=== PATIENT | male | born 1995 | race Caucasian/White ===

== ENCOUNTER 2017-11-16 21:45 | Emergency (ER) | payer SELFPAY ==
[2017-11-16] MEDS ORDERED: NS(*) 0.9% 1000 ML BAG 1,000 ML IV ONE ×2 (21:58→23:50)
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
[2017-11-16] MEDS ORDERED: ONDANSETRON 4 MG/2 ML VIAL IVP ONE (22:00)
[2017-11-16] MEDS ORDERED: HYDROmorphone* 1 MG/ML 1 MG/ML ML IVP ONE (22:00)
[2017-11-16] MEDS ORDERED: DIPHTH/TETANUS/ACEL. PERTUSSIS IM ONE (22:00)
[2017-11-16 22:18] LABS: PLATELET COUNT, AUTOMATED 339 K/uL (150-450)
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
[2017-11-16 22:29] LABS: INR 1.04
[2017-11-16] MEDS ORDERED: IOPAMIDOL 76% 100 ML INFUS BTL 100 ML ONE (22:32)
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
--- NOTE | 2017-11-17 00:26 | RADIOLOGY IMAGING REPORT ---
FACILITY: [facility] PATIENT NAME: Dipak Pan : 1995 MR: [id number] V: [id number] EXAM DATE: ORDERING PHYSICIAN: BOB SANDOVAL TECHNOLOGIST: Location: [facility] Patient: Dipak Pan : 1995 Visit/Account:[id number] Date of Sevice: 11/16/2017 CT of the cervical spine without contrast: Indication: Trauma. Technique: Helical CT was performed from the base of the skull through the upper thoracic spine witho ut contrast. Axial, coronal, and sagittal reconstructions are reviewed. Image quality is suboptimal, due to large body habitus. One of the following dose optimization techniques was utilized in the performance of this exam: Autom ated exposure control; adjustment of the mA and/or kV according to the patient's size; or use of an i terative reconstruction technique. Specific details can be referenced in the facility's radiology C T exam operational policy. Comparison: None. Findings: There are nondisplaced fractures through the right articular masses and laminae of C6 and C 7. The findings are best visualized in the axial and coronal planes. No fracture, compression, or sub luxation of the vertebral bodies is identified. The skeletal structures are otherwise intact. There i s no evidence of subluxation, angulation, or rotation. There is normal mineralization. The paraspinal soft tissues are unremarkable, as visualized. IMPRESSION: There are nondisplaced fractures through the right articular masses and laminae of C6 and C7. A preliminary report was called to Dr. Sandoval at [facility] at 2350 hours. Report Dictated By: Edmond Taylor MD at 11/16/2017 11:40 PM Report E-Signed By: Edmond Taylor MD at 11/17/2017 12:23 AM WSN:[id number]
--- NOTE | 2017-11-17 00:45 | RADIOLOGY IMAGING REPORT ---
FACILITY: [facility] PATIENT NAME: Dipak Pan : 1995 MR: [id number] V: [id number] EXAM DATE: ORDERING PHYSICIAN: BOB TSE TECHNOLOGIST: Location: [facility] Patient: Dipak Pan : 1995 Visit/Account:[id number] Date of Sevice: 11/16/2017 CT of the cervical spine without contrast: Indication: Trauma. Technique: Helical CT was performed through the lumbar spine without contrast. Axial, coronal, and sa gittal reconstructions are reviewed. Image quality is suboptimal, due to large body habitus. One of the following dose optimization techniques was utilized in the performance of this exam: Autom ated exposure control; adjustment of the mA and/or kV according to the patient's size; or use of an i terative reconstruction technique. Specific details can be referenced in the facility's radiology C T exam operational policy. Comparison: None. Findings: There is no evidence of fracture, compression, subluxation, or other acute deformity. There is uniform mineralization. The skeletal structures are otherwise unremarkable. No paraspinal soft ti ssue abnormalities are identified. IMPRESSION: No evidence of fracture or acute deformity. Report Dictated By: Edmond Taylor MD at 11/17/2017 12:37 AM Report E-Signed By: Edmond Taylor MD at 11/17/2017 12:41 AM WSN:[id number]
--- NOTE | 2017-11-17 00:54 | RADIOLOGY IMAGING REPORT ---
FACILITY: [facility] PATIENT NAME: Dipak Pan : 1995 MR: [id number] V: [id number] EXAM DATE: ORDERING PHYSICIAN: BOB SANDOVAL TECHNOLOGIST: Location: [facility] Patient: Dipak Pan : 1995 Visit/Account:[id number] Date of Sevice: 11/16/2017 CT of the chest, abdomen, and pelvis with contrast: Indication: Trauma. Technique: Helical CT was performed through the chest, abdomen, and pelvis following IV contrast enha ncement with 100 cc of Isovue-370. Multiplanar reconstructions are reviewed. Image quality is limite d, due to large body habitus and the low position of the patient's arms. One of the following dose optimization techniques was utilized in the performance of this exam: Autom ated exposure control; adjustment of the mA and/or kV according to the patient's size; or use of an i terative reconstruction technique. Specific details can be referenced in the facility's radiology C T exam operational policy. Comparison: None. Findings: Lungs: There is minimal atelectasis at the left base. No parenchymal consolidation or volume loss is identified. Pleural spaces: There appears to be a tiny anterior left pneumothorax. Minimal left pleural effusion is present. Mediastinum: There is uniform enhancement of the vascular structures. There are no definite signs of vascular injury or mediastinal hematoma. The heart and pericardial soft tissues appear unremarkable. Liver: Intact and unremarkable, as visualized. Gallbladder and biliary tree: Within normal limits. Pancreas: Unremarkable, as visualized. Spleen: Intact and unremarkable, as visualized. Adrenal glands: Within normal limits. Kidneys: Intact and unremarkable, as visualized. Intestinal structures: Unremarkable, as visualized. Urinary bladder: Intact and unremarkable. Pelvic structures: Unremarkable. Ascites or fluid collections: None seen. Skeletal structures: There are acute fractures in the posterolateral margins of the left sixth, seven th, eighth, ninth, and tenth ribs. The eighth and ninth rib fractures are significantly displaced. Th ere also appears to be a fracture of the left scapula near the glenoid process. No acute deformities are clearly identified in the thoracic spine, lumbar spine, or pelvic bones. IMPRESSION: Multiple acute deformities, as detailed above. A preliminary report was called to Dr. Sandoval at [facility] at 2350 hours. Report Dictated By: Edmond Taylor MD at 11/16/2017 11:46 PM Report E-Signed By: Edmond Taylor MD at 11/17/2017 12:50 AM WSN:[id number]
[2017-11-17] MEDS ORDERED: HYDROmorphone* 1 MG/ML 1 MG/ML ML IVP ONE (01:15)
[2017-11-17 01:30] VITALS: BP 116/60
== END 2017-11-17 01:59 | disposition short-term general hospital (02) ==
LOC: ER 22:03
DX: S12.501A Unspecified nondisplaced fracture of sixth cervical vertebra, initial encounter for closed fracture (principal); S22.42XA Multiple fractures of ribs, left side, initial encounter for closed fracture; R31.9 Hematuria, unspecified; R00.0 Tachycardia, unspecified; V86.59XA Driver of other special all-terrain or other off-road motor vehicle injured in nontraffic accident, initial encounter
CPT/HCPCS: 70450; 71045; 71260; 72125; 72128; 72131; 72170; 74177; 80305; 80320; 81001; 82150; 83605; 83690; 85025; 85610; 85730; 86850; 86900; 86901; 93005; 96361; 96374; 96375; 96376; 99285; A4338; J1170; J2405; J7030; L0172; Q9967; 82040; 82247; 82310; 82374; 82435; 82565; 82947; 84075; 84132; 84155; 84295; 84450; 84460; 84520; 99291; 99292

== ENCOUNTER → 2017-11-17 | Outpatient (CLI) | payer SELFPAY | LOC: AMB 01:43 | PROVIDERS: ATTEND Nurse Practitioner | DX: S12.9XXA Fracture of neck, unspecified, initial encounter (principal); S22.39XA Fracture of one rib, unspecified side, initial encounter for closed fracture; S00.01XA Abrasion of scalp, initial encounter; V86.59XA Driver of other special all-terrain or other off-road motor vehicle injured in nontraffic accident, initial encounter | CPT/HCPCS: A0425; A0426 ==